=== PATIENT | female | born 1945 | race Caucasian/White ===

== ENCOUNTER 2022-06-18 08:48 | Outpatient (CLI) | payer MEDICARE, BC | END 2022-06-18 08:49 | disposition home or self-care (01) | LOC: BICMAMMO 08:48 | PROVIDERS: ATTEND Obstetrics & Gynecology | DX: Z12.31 Encounter for screening mammogram for malignant neoplasm of breast (principal) | CPT/HCPCS: 77063; 77067 ==

== ENCOUNTER 2025-01-18 12:25 | Outpatient (CLI) | payer MEDICARE | END 2025-01-18 12:26 | disposition home or self-care (01) | LOC: BICMAMMO 12:25 | PROVIDERS: ATTEND Nurse Practitioner Family | DX: Z12.31 Encounter for screening mammogram for malignant neoplasm of breast (principal) | CPT/HCPCS: 77063; 77067 ==